=== PATIENT | male | born 1960 | race Caucasian/White ===

== ENCOUNTER → 2018-01-31 | Outpatient (CLI) | payer OTHER | END | disposition home or self-care (01) | LOC: CFH 06:36 | PROVIDERS: ATTEND Internal Medicine | DX: G31.9 Degenerative disease of nervous system, unspecified (principal) | CPT/HCPCS: 70551 ==

== ENCOUNTER → 2018-04-04 | Outpatient (CLI) | payer OTHER | END | disposition home or self-care (01) | LOC: CFH 08:01 | PROVIDERS: ATTEND Nurse Practitioner Primary Care | DX: H53.8 Other visual disturbances (principal); R41.3 Other amnesia; R22.1 Localized swelling, mass and lump, neck | CPT/HCPCS: 70544; 93880 ==

== ENCOUNTER → 2018-04-27 | Outpatient (CLI) | payer OTHER ==
[~2018-04-27] MED LIST: OMNIPAQUE 350 MG/ML, 100ML BOTTLE ONE
== END | disposition home or self-care (01) ==
LOC: CFH 13:30
PROVIDERS: ATTEND Nurse Practitioner Primary Care
DX: R93.8 Abnormal findings on diagnostic imaging of other specified body structures (principal); E78.2 Mixed hyperlipidemia; E03.9 Hypothyroidism, unspecified; E55.9 Vitamin D deficiency, unspecified
CPT/HCPCS: 70491; Q9967

== ENCOUNTER → 2018-05-05 | Outpatient (CLI) | payer OTHER ==
[~2018-05-05] MED LIST changes: +LIDOCAINE-MPF 2%, 2ML ONE; -OMNIPAQUE 350 MG/ML, 100ML BOTTLE ONE
== END | disposition home or self-care (01) ==
LOC: EDSTATUS 07:30 → RAD 09:43
PROVIDERS: ATTEND Nurse Practitioner Primary Care
DX: R93.8 Abnormal findings on diagnostic imaging of other specified body structures (principal)
CPT/HCPCS: 76942; 88112; 88172; 88173; J3490

== ENCOUNTER → 2018-06-03 | Outpatient (CLI) | payer OTHER ==
[~2018-06-03] MED LIST changes: +GADOBUTROL 10 MMOL/10 ML PFS ONE; -LIDOCAINE-MPF 2%, 2ML ONE
== END | disposition home or self-care (01) ==
LOC: CFH 07:43
PROVIDERS: ATTEND Internal Medicine
DX: G31.9 Degenerative disease of nervous system, unspecified (principal); C73 Malignant neoplasm of thyroid gland; G25.2 Other specified forms of tremor; R41.3 Other amnesia
CPT/HCPCS: 70553; A9585

== ENCOUNTER → 2018-06-07 | Outpatient (CLI) | payer OTHER | END | disposition home or self-care (01) | LOC: PETCFH 12:55 | PROVIDERS: ATTEND Nurse Practitioner Primary Care | DX: R59.0 Localized enlarged lymph nodes (principal); C73 Malignant neoplasm of thyroid gland; E78.2 Mixed hyperlipidemia; E03.9 Hypothyroidism, unspecified; E55.9 Vitamin D deficiency, unspecified; E53.8 Deficiency of other specified B group vitamins | CPT/HCPCS: 78815; A9552 ==

== ENCOUNTER 2018-07-18 05:48 | Inpatient (IN) | payer OTHER ==
[2018-07-15 11:32] LABS: BASOPHILS # (AUTO) 0.04 x10^3/uL (0-0.1); BASOPHILS % (AUTO) 1 % (0-1); EOSINOPHILS # (AUTO) 0.17 x10^3/uL (0-0.4); EOSINOPHILS % (AUTO) 2 % (1-7); LYMPHOCYTES # (AUTO) 2.43 x10^3/uL (1-3.4); LYMPHOCYTES % (AUTO) 33 % (22-44); MD NO; MEAN CORPUSCULAR HEMOGLOBIN 31.7 pg (27.5-34.5); MEAN CORPUSCULAR HGB CONC 33.9 g/dL (33.2-36.2); MEAN CORPUSCULAR VOLUME 93.4 fL (81-97); MEAN PLATELET VOLUME 9.8 fL (7.4-10.4); MONOCYTES # (AUTO) 0.52 x10^3/uL (0.2-0.8); MONOCYTES % (AUTO) 7 % (2-9); NEUTROPHILS # (AUTO) 4.23 x10^3/uL (1.8-6.8); NEUTROPHILS % (AUTO) 57 % (42-75); PLATELET COUNT 180 x10^3/uL (130-400); RED BLOOD COUNT 4.81 x10^6/uL (4.38-5.82); RED CELL DISTRIBUTION WIDTH 13.5 % (9.4-14.8)
[2018-07-15 11:42] LABS: ALANINE AMINOTRANSFERASE 35 U/L (12-78); ALBUMIN 3.8 g/dL (3.4-5.0); ANION GAP 8 mmol/L (5-15); CHLORIDE 111 mmol/L (98-107)
[2018-07-15 11:43] LABS: ALKALINE PHOSPHATASE 80 U/L (45-117); BILIRUBIN,TOTAL 0.6 mg/dL (0.2-1.0)
[~2018-07-18] VITALS: Ht 190.5 cm; Wt 108.9 kg
[~2018-07-18 05:48] MED LIST changes: +CYAN50008 PO; -GADOBUTROL 10 MMOL/10 ML PFS ONE; +VITAMIN D3 PO
[2018-07-18] MEDS ORDERED: BUPIVACAINE/PF 0.5% ONE (06:51)
[2018-07-18] MEDS ORDERED: EPINEPHRINE 1 MG/ML, 1ML ONE (06:51)
[2018-07-18] MEDS ORDERED: LACTATED RINGERS 1,000 ML IV SCH (06:58)
[2018-07-18 07:01] VITALS: BP 130/81
[2018-07-18] MEDS ORDERED: FENTANYL PF 250 MCG/5ML ONE ×2 (07:20→09:07)
[2018-07-18] MEDS ORDERED: MIDAZOLAM 1 MG/ML, 2ML ONE (07:20)
[2018-07-18] MEDS ORDERED: CLINDAMYCIN 150 MG/ML, 6ML ONE (07:29)
[2018-07-18] MEDS ORDERED: ACETAMINOPHEN 500 MG TABLET PO ONE (07:30)
[2018-07-18] MEDS ORDERED: GABAPENTIN 300 MG CAPSULE PO ONE (07:30)
[2018-07-18] MEDS ORDERED: FENTANYL PF 100 MCG/2ML IV PRN (08:30)
[2018-07-18] MEDS ORDERED: LABETALOL 5MG/ML, 20ML IV PRN (08:30)
[2018-07-18] MEDS ORDERED: PROMETHAZINE 25 MG/ML, 1ML IV PRN (08:30)
[2018-07-18] MEDS ORDERED: DIPHENHYDRAMINE 50 MG/ML, 1ML IVPush PRN (08:30)
[2018-07-18] MEDS ORDERED: OXYcodone 5 MG/5 ML ORAL.SOL UDC PO PRN (08:30)
[2018-07-18] MEDS ORDERED: hydrALAzine 20 MG/ML, 1ML IV PRN ×2 (08:30→16:00)
[2018-07-18] MEDS ORDERED: HYDROmorphone 2 MG/ML, 1ML IVPush PRN (08:30)
[2018-07-18] MEDS ORDERED: MEPERIDINE/PF 25MG/0.5ML IVPush PRN (08:30)
[2018-07-18] MEDS ORDERED: FENTANYL PF 100 MCG/2ML ONE (10:49)
[2018-07-18 13:48] LABS: ALANINE AMINOTRANSFERASE 30 U/L (12-78); ALBUMIN 3.7 g/dL (3.4-5.0); ANION GAP 11 mmol/L (5-15); CALCIUM 8.2 mg/dL (8.5-10.1); CHLORIDE 110 mmol/L (98-107); CREATININE 1.44 mg/dL (0.7-1.3)
[2018-07-18 13:52] LABS: ALKALINE PHOSPHATASE 78 U/L (45-117); BILIRUBIN,TOTAL 0.5 mg/dL (0.2-1.0); CREATINE KINASE, TOTAL 217 U/L (39-308); TOTAL PROTEIN 6.7 g/dL (6.4-8.2); TROPONIN I < 0.015 ng/mL (0.000-0.045)
[2018-07-18] MEDS ORDERED: PROMETHAZINE 25 MG/ML, 1ML ONE (14:11)
[2018-07-18 15:35] VITALS: BP 134/78
[2018-07-18] MEDS ORDERED: DEXAMETHASONE 4 MG/ML, 1ML ONE (15:35)
[2018-07-18] MEDS ORDERED: SUCCINYLCHOLINE 20 MG/ML, 10ML ONE (15:35)
[2018-07-18] MEDS ORDERED: ONDANSETRON 2MG/ML, 2ML ONE (15:35)
[2018-07-18] MEDS ORDERED: PROPOFOL 10 MG/ML, 20ML ONE (15:35)
[2018-07-18] MEDS ORDERED: ROCURONIUM 10MG/ML,5ML ONE (15:35)
[2018-07-18] MEDS ORDERED: ACETAMINOPHEN 325 MG TABLET PO PRN (16:00)
[2018-07-18] MEDS ORDERED: HYDROcodone/APAP 5/325 TABLET PO PRN (16:00)
[2018-07-18] MEDS ORDERED: ACETAMINOPHEN 650 MG SUPP PR PRN (16:00)
[2018-07-18] MEDS ORDERED: ONDANSETRON 2MG/ML, 2ML IV PRN (16:00)
[2018-07-18] MEDS: CALCIUM/VITAMIN D3 250-125 TABLET PO SCH ×2 (16:00→21:31)
[2018-07-18] MEDS ORDERED: SCOPOLAMINE PATCH, 1.5MG PATCH.TD72 TD SCH (18:00)
[2018-07-18 19:37] VITALS: BP 128/74
[2018-07-18] MEDS: HEPARIN 5,000 UNITS/ML, 1ML SQ SCH (21:32)
[2018-07-18] MEDS: KETOROLAC 30 MG/1 ML IV PRN (21:33)
[2018-07-19 00:10] VITALS: BP 121/71
[2018-07-19 04:00] VITALS: BP 115/68
[2018-07-19] MEDS: HEPARIN 5,000 UNITS/ML, 1ML SQ SCH ×3 (05:20→20:26)
[2018-07-19] MEDS: KETOROLAC 30 MG/1 ML IV PRN ×3 (05:21→20:26)
[2018-07-19 05:40] LABS: CALCIUM 8.3 mg/dL (8.5-10.1)
[2018-07-19 07:30] VITALS: BP 121/65
[2018-07-19] MEDS: CALCIUM/VITAMIN D3 250-125 TABLET PO SCH ×3 (08:18→20:26)
[2018-07-19 13:36] VITALS: BP 114/67
[2018-07-19 20:00] VITALS: BP 118/75
[2018-07-20] MEDS: HEPARIN 5,000 UNITS/ML, 1ML SQ SCH ×3 (04:47→23:12)
[2018-07-20] MEDS: KETOROLAC 30 MG/1 ML IV PRN ×2 (04:51→20:54)
[2018-07-20 04:55] VITALS: BP 113/70
[2018-07-20 07:22] VITALS: BP 116/75
[2018-07-20] MEDS: CALCIUM/VITAMIN D3 250-125 TABLET PO SCH ×3 (08:06→23:13)
[2018-07-20] MEDS ORDERED: BUPIVACAINE/PF-EPI 0.5% 1:200K ONE (10:17)
[2018-07-20 12:53] VITALS: BP 111/74
[2018-07-20] MEDS ORDERED: ACETAMINOPHEN 500 MG TABLET PO ONE (13:00)
[2018-07-20] MEDS ORDERED: GABAPENTIN 300 MG CAPSULE PO ONE (13:00)
[2018-07-20] MEDS ORDERED: hydrALAzine 20 MG/ML, 1ML IV PRN (13:30)
[2018-07-20] MEDS ORDERED: DIPHENHYDRAMINE 50 MG/ML, 1ML IVPush PRN (13:30)
[2018-07-20] MEDS ORDERED: LABETALOL 5MG/ML, 20ML IV PRN (13:30)
[2018-07-20] MEDS ORDERED: HYDROmorphone 2 MG/ML, 1ML IVPush PRN (13:30)
[2018-07-20] MEDS ORDERED: FENTANYL PF 100 MCG/2ML IV PRN (13:30)
[2018-07-20] MEDS ORDERED: OXYcodone 5 MG/5 ML ORAL.SOL UDC PO PRN (13:30)
[2018-07-20] MEDS ORDERED: PROMETHAZINE 25 MG/ML, 1ML IV PRN (13:30)
[2018-07-20] MEDS ORDERED: MIDAZOLAM 1 MG/ML, 2ML ONE (13:59)
[2018-07-20] MEDS ORDERED: FENTANYL PF 250 MCG/5ML ONE (13:59)
[2018-07-20] MEDS ORDERED: CLINDAMYCIN 150 MG/ML, 6ML ONE (14:21)
[2018-07-20] MEDS ORDERED: ONDANSETRON 2MG/ML, 2ML ONE (14:29)
[2018-07-20] MEDS ORDERED: DEXAMETHASONE 4 MG/ML, 1ML ONE (14:29)
[2018-07-20] MEDS ORDERED: BUPIVACAINE/PF-EPI 0.5% 1:200K INFIL ONE (15:08)
[2018-07-20] MEDS ORDERED: FENTANYL PF 100 MCG/2ML ONE ×2 (16:26→18:13)
[2018-07-20] MEDS ORDERED: MEPERIDINE/PF 50 MG/ML ONE (18:13)
[2018-07-20] MEDS: MEPERIDINE/PF 25MG/0.5ML IVPush PRN ×2 (18:16→18:35)
[2018-07-20] MEDS ORDERED: OXYcodone 5 MG/5 ML ORAL.SOL UDC ONE (18:48)
[2018-07-20 20:00] VITALS: BP 138/78
[2018-07-21 00:15] VITALS: BP 118/77
[2018-07-21] MEDS: KETOROLAC 30 MG/1 ML IV PRN ×2 (03:15→08:55)
[2018-07-21 03:55] VITALS: BP 113/76
[2018-07-21] MEDS ORDERED: LEVOTHYROXINE 100 MCG TABLET ONE (05:45)
[2018-07-21] MEDS ORDERED: LEVOTHYROXINE 200 MCG TABLET PO SCH (06:00)
[2018-07-21 06:14] LABS: CALCIUM 8.3 mg/dL (8.5-10.1)
[2018-07-21 06:52] VITALS: BP 109/71
[2018-07-21] MEDS: HEPARIN 5,000 UNITS/ML, 1ML SQ SCH (07:46)
[2018-07-21] MEDS: CALCIUM/VITAMIN D3 250-125 TABLET PO SCH (08:55)
[2018-07-21] MEDS ORDERED: LEVO200T PO (10:25)
[2018-07-21] MEDS ORDERED: HYDR-3240 PO (10:26)
== END 2018-07-21 11:16 | disposition home or self-care (01) | DRG 626 ==
LOC: ORIP 05:48 → 4NOR 15:15 → DCLOUNGE 07-21 10:57
PROVIDERS: ADMIT Surgery; ATTEND Surgery
PROC: 07T10ZZ Resection of Right Neck Lymphatic, Open Approach (ICD-10-PCS; 2018-07-18)
PROC: 0GTK0ZZ Resection of Thyroid Gland, Open Approach (ICD-10-PCS; principal; 2018-07-18 07:30)
PROC: 07T20ZZ Resection of Left Neck Lymphatic, Open Approach (ICD-10-PCS; 2018-07-20)
DX: C73 Malignant neoplasm of thyroid gland (principal); C77.9 Secondary and unspecified malignant neoplasm of lymph node, unspecified; E04.2 Nontoxic multinodular goiter; Z88.1 Allergy status to other antibiotic agents; Z88.2 Allergy status to sulfonamides; Z88.0 Allergy status to penicillin; Z82.49 Family history of ischemic heart disease and other diseases of the circulatory system; Z83.3 Family history of diabetes mellitus
CPT/HCPCS: 36415; 36600; S0077; 80053; 82310; 82550; 82803; 83970; 84484; 85025; 86850; 86900; 88305; 88307; 93005; C1729; G0378; J0171; J1100; J1644; J1885; J2175; J2250; J2405; J2704; J3010; J3490; C1760; J0330; J7120